=== PATIENT | female | born 1980 | race Caucasian/White ===

== ENCOUNTER 2017-02-26 19:33 | Emergency (ER) | payer OTHER ==
[2017-02-26] MEDS ORDERED: KETOROLAC TROMETHAMINE 60 MG/2 ML VIAL ONE (19:37)
[2017-02-26] MEDS ORDERED: KETOROLAC TROMETHAMINE 60 MG/2 ML VIAL IM ONE (20:03)
[2017-02-26] MEDS ORDERED: NALBUPHINE HCL 10 MG/1 ML IM ONE (20:04)
--- NOTE | 2017-02-26 20:45 | ED Physician Documentation ---
Fall - HISTORIAN Historian: patient - HPI Stated Complaint: fall down stairs Chief Complaint: Fall Onset: today Where: home Context: tripped r: moderate Associated Symptoms:: no loss of consciousness Location of Pain/Injury: lower back, other (right index finger, left ankle) Further Comments: yes (36 year old female patient presents after fall down 7 stairs this afternoon, took ibuprofen around 1700. Patient complains of right index finger pain, left ankle and coccyx pain.) - ROS CONST: no problems NEURO: denies: dizziness, anxiety MS/SKIN/LYMPH: ankle swelling (left) EYES/ENT: none CVS/RESP: none GI/: denies: nausea, vomiting LNMP: 02/09/17 - PAST HX Past History: other (hypothyroidism) Allergies/Adverse Reactions: Allergies Allergy/AdvReac Type Severity Reaction Status Date / Time No Known Allergies Allergy Verified 02/26/17 20:16 Home Medications: Ambulatory Orders Medication Instructions Recorded Ascorbic Acid [Vitamin C] 1,000 mg PO D 02/26/17 Levothyroxine Sodium [Unithroid] 174 mcg PO D 02/26/17 Magnesium Oxide [Magnesium] 25 mg PO D 02/26/17 Multivitamin [Daily Multiple 1 tab PO D 02/26/17 Vitamin] - SOCIAL HX Smoking History: non-smoker - FAMILY HX Family History: denies: none - VITAL SIGNS Vital Signs: Vital Signs Temp Pulse Resp BP Pulse Ox 98 F 78 16 130/74 97 02/26/17 19:33 02/26/17 19:33 02/26/17 19:33 02/26/17 19:33 02/26/17 19:33 - REVIEWED ASSESSMENTS Nursing Assessment Reviewed: Yes Vitals Reviewed: Yes ED Results Lab/Radiology - Orders Orders: ED Orders Category Date Time Status ANKLE 3 VIEWS OR MORE [RAD] Stat Exams 02/26/17 Ordered FINGER 2 VIEWS OR MORE [RAD] Stat Exams 02/26/17 Ordered SACRUM & COCCYX 2 VIEW+ [RAD] Stat Exams 02/26/17 Ordered Ketorolac Tromethamine [Toradol] Med 02/26/17 19:37 Discontinued 60 mg .ROUTE .STK-MED ONE Ketorolac Tromethamine [Toradol] Med 02/26/17 20:03 Discontinued 60 mg IM NOW ONE Nalbuphine HCl [Nubain] Med 02/26/17 20:04 Discontinued 10 mg IM NOW ONE Fall Physical Exam - Physical Exam General Appearance: mild distress Head: non-tender, no swelling, no obvious injury Neck: non-tender, painless ROM, trachea midline Eye: ETTA, EOMI, lids & conjunct. nml ENT: nml external inspection, no dental injury, no oral injury, airway nml Resp/CVS: chest non-tender, no ecchymosis, breath sounds nml, no resp. distress , heart sounds nml Abdomen: soft, no organomegaly, normal bowel sounds, no abdominal bruit, no distension Neuro: oriented x3, CN's nml as tested, sensation nml, motor nml, mood/affect nml, junior web designer nml, reflexes nml, junior web designer symmetrical Skin: color nml, no rash, nml palp., dry Extremities: atraumatic, pelvis stable, hips non-tender, no pedal edema, nml ROM , nml color/temp, other (mild left lateral ankle edema noted, Right index finger - patient c/o pain with flexion, pain with palpation of L5-S1 coccyx area. ) - Morton Coma Score Eyes Open: Spontaneous Speech: Oriented Motor: Obeys Commands Discharge Clincal Impression: Fall Qualifiers: Encounter type: initial encounter Qualified Code(s): W19.XXXA - Unspecified fall, initial encounter Ankle sprain Qualifiers: Encounter type: initial encounter Involved ligament of ankle: unspecified ligament Laterality: left Qualified Code(s): S93.402A - Sprain of unspecified ligament of left ankle, initial encounter Coccyx contusion Qualifiers: Encounter type: initial encounter Qualified Code(s): S30.0XXA - Contusion of lower back and pelvis, initial encounter Referrals: Tim Larsen MD [Primary Care Provider] - 2 Days Additional Instructions: Rest Ice Elevation of ankle Coccyx - you may want to sit on a pillow or use a donut cushion for a few days. supervisor webbing your prescription and start it in the morning. Condition: Stable Disposition: 01 HOME, SELF-CARE Decision to Admit: NO Decision Time: 21:06
--- NOTE | 2017-02-26 21:07 | Diagnostic Imaging Report ---
PHILIP STEEN (GABY) - ER [facility] [address] [facility] [address] [address] Report Submission Date: Feb 26, 2017 8:53:56 PM ARCHIVES SPECIALIST Patient Study Name: FRANCIA ALAN Date: Feb 26, 2017 8:38:32 PM ARCHIVES SPECIALIST Modality Type: CR Gender: F Description: SPINE : 76 Institution: [facility] Physician: PHILIP STEEN) - ER Sacrum and coccyx 3 views History: Pain after fall Findings: Multiple round high-density artifacts are on the patient's clothing. There is no fracture, dislocation, arthropathy, or focal bone lesion. Impression: 1. Unremarkable sacrum and coccyx. 2. High density clothing artifact. Electronically signed on Feb 26, 2017 8:53:56 PM ARCHIVES SPECIALIST by: Hugh CHUNG
--- NOTE | 2017-02-26 21:08 | Diagnostic Imaging Report ---
PHILIP STEEN (GABY) - ER [facility] [address] [facility].[address] [address] Report Submission Date: Feb 26, 2017 8:44:52 PM ENVIRONMENTAL SAMPLER Patient Study Name: FRANCIA ALAN Date: Feb 26, 2017 8:36:06 PM ENVIRONMENTAL SAMPLER Modality Type: CR Gender: F Description: LOWER EXTREMITY : 76 Institution: [facility] Physician: PHILIP STEEN) - ER Left ankle 3 views History: Pain after fall Findings: The left ankle is unremarkable without fracture, dislocation, arthropathy, or focal bone lesion. Electronically signed on Feb 26, 2017 8:44:52 PM ENVIRONMENTAL SAMPLER by: Hugh CHUNG
--- NOTE | 2017-02-26 21:09 | Diagnostic Imaging Report ---
PHILIP STEEN (GABY) - [place] [address] [facility] [address] Report Submission Date: Feb 26, 2017 8:43:54 PM PROJECT BUILDER Patient Study Name: FRANCIA ALAN Date: Feb 26, 2017 8:34:18 PM PROJECT BUILDER Modality Type: CR Gender: F Description: UPPER EXTREMITY : 76 Institution: [facility] Physician: PHILIP STEEN) - ER 3 views right index finger History: Pain after fall Findings: The right index finger is unremarkable without fracture, dislocation, arthropathy, or focal bone lesion. Electronically signed on Feb 26, 2017 8:43:54 PM PROJECT BUILDER by: Hugh CHUNG
[2017-02-26] MEDS ORDERED: HYDROcodone /APAP 5/325 1 EACH TABLET PO ONE (21:13)
[2017-02-26 21:42] VITALS: BP 113/74
== END 2017-02-26 21:26 | disposition home or self-care (01) ==
LOC: ED 19:33
DX: S93.402A Sprain of unspecified ligament of left ankle, initial encounter (principal); S30.0XXA Contusion of lower back and pelvis, initial encounter; W19.XXXA Unspecified fall, initial encounter; Y93.9 Activity, unspecified; Y99.9 Unspecified external cause status
CPT/HCPCS: 72220; 73140; 73610; J1885; J2300; 96372; 99283